=== PATIENT | male | born 1960 | race Two or more races ===

== ENCOUNTER 2021-05-16 10:15 | Emergency (ER) | payer OTHER, SELFPAY ==
--- NOTE | ~2021-05-16 | XR_ITS ---
EXAMINATION: XR SHOULDER, RIGHT CLINICAL INFORMATION: Pain COMPARISON: None TECHNIQUE: AP external rotation, Grashey, scapular Y, and axillary views of the right shoulder. FINDINGS: Bone alignment is normal. No fracture or dislocation is seen. The joint spaces are normal. Soft tissues are normal. There is a prominent right C7 transverse process. XR/XR shoulder RT min 2V IMPRESSION: Normal right shoulder.
[2021-05-16 10:33] VITALS: BP 106/69; PULSE 57; RESP 18; TEMP 36.1; O2SAT 97; BMI 23.3
--- NOTE | 2021-05-16 12:05 | ED_ITS ---
HPI - Extremity Problem General Chief complaint: Extremity Problem Stated complaint: rt shoulder pain Time Seen by Provider: 05/16/21 11:18 Source: patient Mode of arrival: ambulatory Limitations: no limitations History of Present Illness HPI Narrative: 61-year-old male here with complaints of right shoulder pain for 1 month. Patient tells me he had injury years ago but no new injury or trauma. Pain is worsened with lifting his arm up and using the arm. He denies any numbness, tingling, weakness, fevers or chills. 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 Related Data Previous Rx's Medication Instructions Recorded cyclobenzaprine 10 mg tablet 10 mg PO TID PRN #10 tab 05/16/21 naproxen 500 mg tablet 500 mg PO BID PRN #20 tab 05/16/21 Allergies Allergy/AdvReac Type Severity Reaction Status Date / Time No Known Allergies Allergy Verified 05/16/21 10:32 [No Known Allergies*] Bleach Allergy Unknown Itch/rednes Uncoded 07/18/17 00:00 s Review of Systems Review of Systems: Yes all other systems are reviewed and are negative Constitutional: Constitutional: Reports no additional constitutional complaints, Denies body ache(s), Denies chills, Denies fever(s), Denies headache(s) and Denies weakness Eyes: Eyes: Reports no additional eye complaints and Denies change in vision ENT: Reports system reviewed and no additional complaints, except as documented, Denies dizziness, Denies headache(s), Denies nasal congestion, Denies nasal discharge and Denies neck pain Cardiovascular: Cardiovascular: Reports no additional cardiovascular complain ts, Denies chest pain, Denies leg edema and Denies dyspnea Respiratory: Respiratory: Reports no additional respiratory complaints, Denies cough and Denies dyspnea Gastrointestinal: Gastrointestinal: Reports no additional gastrointestinal complaints, Denies abdominal pain, Denies diarrhea, Denies nausea and Denies vomiting Genitourinary: Genitourinary: Denies urinary incontinence Musculoskeletal: Musculoskeletal: Reports no additional musculoskeletal complaints, Denies back pain, Reports arthralgias, Denies joint swelling, Denies neck pain, Denies numbness and Denies tingling Integumentary/Breasts: Skin/Breast: Reports system reviewed and no additional complaints, except as docu and Denies rash Neurologic: Reports system reviewed and no additional complaints, except as documented, Denies Abnormal speech present, Denies dizziness, Denies headache(s), Denies numbness, Denies tingling and Denies weakness PMFSH Past Medical History Attestation statement: The following information was validated with the patient. Source: old records reviewed and nursing notes reviewed Medical History No known health problems Social History Social History Advance Directives: No Advance Directives Information Provided: No Physical Exam Vital Signs: Vital Signs: Last Vital Signs Temp 97 F 05/16/21 10:33 Pulse 57 05/16/21 10:33 Resp 18 05/16/21 10:33 BP 106/69 05/16/21 10:33 Pulse Ox 97 05/16/21 10:33 Body Mass Index 23.3 Const: General: cooperative, healthy appearing, comfortable and no acute distress Orientation/consciousness: patient oriented x3 Limitations: no limitations HENMT: Head: Yes normal to inspection Ears: hearing grossly normal bilaterally General nose exam: Normal external nose present Face and sinus: Yes normal facial exam Mouth: Normal oral and palatal mucosa present Throat: Yes posterior oropharynx normal Eyes: General: appearance normal, both eyes and all related structures Pu pils: Equal, round and reactive pupils present Neck: Neck: Yes normal visual inspection Chest: Chest palpation & inspection: normal inspection of the chest Resp: Effort & Inspection: normal respiratory effort Auscultation: clear to auscultation bilaterally Cardio: Rate: regular rate Rhythm: regular rhythm Peripheral pulses: Peripheral pulses 2+ throughout GI: Inspection: Yes normal to inspection Palpation (GI): Soft to palpation and nontender Auscultation: normal bowel sounds Back/Spine/Pelvis: Thoracic/Lumbar Spine: thoracic and lumbar spine normal to inspection Skin: General skin exam: no rashes or lesions noted Neuro: General: patient oriented x3, no focal motor deficits and normal sensation to monofilament Cranial nerves: Yes Equal, round and reactive pupils present Cognition (Neuro): normal cognition Speech: No Abnormal speech present Gait exam (Neuro): Normal gait present Motor exam (neuro): 5/5 motor strength present throughout Extrem: Other: Diffuse tenderness over the shoulder. There is pain which is worsened with abduction of the arm. No weakness. Normal sensation. General: Yes normal to inspection Course Course Course Narrative: Atraumatic right shoulder pain for 1 month. Will check x-rays 1240-x-ray show no bony abnormalities. ? rotator cuff strain versus cervical radiculopathy. Will trial anti-inflammatory, muscle relaxant at home and recommend patient follow-up with primary care by Tuesday for persistent pain. Reviewed worrisome signs and symptoms of when to return to the emergency department. Comfortable discharge home. MDM - Extremity (Nontraumatic) Medical Records Attestation: I reviewed the patient's medical records. Lab Data Attestation: I reviewed the patient's lab results. Imaging Data right shoulder xray: Attestation: I personally reviewed and interpreted this imaging study as follows: Radiologist's impression: CLINICAL INFORMATION: Pain? COMPARISON: None? TECHNIQUE: AP external rotation, Grashey, scapular Y, and axillary views of the right shoulder. FINDINGS: Bone alignment is normal. No fracture or dislocation is seen. The joint spaces are normal. Soft tissues are normal. There is a prominent right C7 transverse process.? XR/XR shoulder RT min 2V IMPRESSION: Normal right shoulder. Discharge Plan Discharge Clinical Impression: Muscle strain of right shoulder Patient Disposition: Home, Self-Care Instructions: Muscle Strain (ED) Additional Instructions: Heat or ice Gentle stretching For persistent symptoms see PCP Tuesday Prescriptions: New cyclobenzaprine 10 mg tablet 10 mg PO TID PRN (Reason: muscle spasm) Qty: 10 RF: 0 naproxen 500 mg tablet 500 mg PO BID PRN (Reason: pain) Qty: 20 RF: 0 Referrals: Physician,Unknown J [Primary Care Provider] - 2 days Interventions: ED Discharge Assessment Last Done: 05/16/21 12:26 Discharge Date/Time: 05/16/21 12:27
== END 2021-05-16 12:27 | disposition home or self-care (01) ==
PROVIDERS: Emergency Provider Emergency Medicine Emergency Medical Services
DX: M25.511 Pain in right shoulder (principal); Z79.899 Other long term (current) drug therapy
CPT/HCPCS: 73030; 99283

== ENCOUNTER 2021-06-17 06:53 | Outpatient (REF) | payer OTHER, SELFPAY ==
[2021-06-17 07:08] LABS: MANUAL DIFF FLAG NO
[2021-06-17 08:04] LABS: Basophils Absolute Auto 0.1 X10*3/uL (0.0-0.2); Basophils Percent Auto 0.8 % (0-2); Eosinophils Absolute Auto 0.2 X10*3/uL (0.0-0.4); Eosinophils Percent Auto 2.9 % (0-4); Hematocrit 42.5 % (42.0-52.0); Imm Gran Abs Auto 0.02 X10*3/uL (0.00-0.03); Imm Gran Pct Auto 0.3 % (0.0-0.4); Lymphocytes Absolute Auto 2.3 X10*3/uL (1.2-4.9); Lymphocytes Percent Auto 31.8 % (20-40); Mean Corpuscular HGB Conc 32.9 g/dl (31.0-36.0); Mean Corpuscular Hemoglobin 27.8 pg (27.0-33.0); Mean Corpuscular Volume 84.3 fL (80.0-98.0); Mean Platelet Volume 10.2 fL (9.4-12.4); Monocytes Absolute Auto 0.5 X10*3/uL (0.1-1.2); Monocytes Percent Auto 6.6 % (2-11); Neutrophils Absolute Auto 4.1 x10*3/uL (2.0-8.3); Neutrophils Percent Auto 57.6 % (45-73); Platelet Count 230 X10*3/uL (160-400); Red Blood Count 5.04 X10*6/uL (4.60-5.80); Red Cell Distribution Width 13.8 % (11.0-16.0); White Blood Count 7.2 X10*3/uL (4.8-10.8)
[2021-06-17 08:28] LABS: Anion Gap 11 (12-20); Blood Urea Nitrogen 17 mg/dL (9-16); Calcium 9.4 mg/dL (8.4-10.2); Carbon Dioxide 26 mmol/L (22-29); Chloride 104 mmol/L (96-108); Estimated Glomerular Filt Rate > 60; Glucose Random 100 mg/dL (60-115); Potassium 4.3 mmol/L (3.3-5.1); Sodium 137 mmol/L (135-145)
[2021-06-17 08:38] LABS: TSH reflex Free T4 0.63 uIU/mL (0.32-4.0)
[2021-06-17 08:55] LABS: Erythrocyte Sedimentation Rate 8 MM/HR (0-15)
[2021-06-17 09:07] LABS: Vitamin B12 429 pg/mL (200-900)
== END 2021-06-17 06:54 | disposition home or self-care (01) ==
LOC: HO.LAB 06:53
PROVIDERS: PCP Internal Medicine; Visit Provider Internal Medicine
DX: R20.2 Paresthesia of skin (principal)
CPT/HCPCS: 36415; 80048; 82607; 82746; 84443; 85025; 85652

== ENCOUNTER 2022-01-14 10:15 | Outpatient (REF) | payer OTHER, SELFPAY ==
[2022-01-14 12:14] LABS: Vitamin D 25-OH Total 15.2 ng/mL (>30)
== END 2022-01-14 10:16 | disposition home or self-care (01) ==
LOC: HO.LAB 10:15
PROVIDERS: PCP Internal Medicine; Visit Provider Nurse Practitioner Family
DX: R20.2 Paresthesia of skin (principal)
CPT/HCPCS: 36415; 82306; 83735

== ENCOUNTER → 2022-03-05 09:52 | Outpatient (BNVA) | payer OTHER, SELFPAY | PROVIDERS: PCP Nurse Practitioner Family; Visit Provider Physician Assistant | DX: M19.011 Primary osteoarthritis, right shoulder (principal); M75.51 Bursitis of right shoulder | CPT/HCPCS: 20600; 99202; J1020 ==

== ENCOUNTER → 2022-04-16 09:39 | Outpatient (BNVA) | payer OTHER, SELFPAY | PROVIDERS: PCP Nurse Practitioner Family; Visit Provider Physician Assistant | DX: M75.51 Bursitis of right shoulder (principal); M19.011 Primary osteoarthritis, right shoulder | CPT/HCPCS: 99212 ==

== ENCOUNTER 2022-04-22 11:00 | Outpatient (RCR) | payer OTHER, SELFPAY ==
--- NOTE | 2022-03-22 13:54 | MHC.PT.EP ---
[facility] [place] [facility] [place] [facility] [place] [facility] [address] Favio Reyna [address] [phone] F: [phone] F: [phone] F: [phone] F: [phone] Physical Therapy Plan of Care Date of Evaluation: Date of Surgery: N/A Diagnosis: Bursitis of right shoulder primary osteoarthritis, right shoulder Assessment: Pt is a 62yo M who presents to PT for R shoulder pain. He reports he fell during snow removal ~2 years ago and has had pain since. He presents to PT with current impairments in pain, decreased shoulder ROM, decreased shoulder strength, soft tissue restrictions, and impaired posture. He is limited functionally by lifting, reaching, overhead ADLs, driving, and sleeping. He is a good candidate for skilled PT in order to address current impairments to facilitate return to PLOF. He will be seen 2x/week for 4 weeks and will be reassessed at that time. Frequency and Duration: The patient will be seen 2x/week for 4 weeks Short Term Goals: Pt will be I with HEP to promote self management of symptoms Pt will demonstrate improvements in posture throughout the day Tread Builder Goals: Pt will demonstrate full ROM all planes of R shoulder Pt will perform overhead ADLs with minimal to no compensation of R UE Pt will demonstrate ability to lift 5# object into cabinet to assist with daily functional tasks Treatment Plan: Modalities to reduce pain, spasms and effusion. Manual therapy to restore motion and function. Therapeutic exercise to improve strength and flexibility. Neuromuscular re-education for posture and balance. Therapeutic activities to return to functional activities of daily living. Electronically signed by: Starla Lee, PT, DPT Please sign and return to therapist. Thank you for your referral.
--- NOTE | 2022-05-03 10:38 | MHC.PT.DC ---
[facility] [place] [facility] [place] [facility] [place] [facility] [address] Favio Reyna [address] [phone] F: [phone] F: [phone] F: [phone] F: [phone] Physical Therapy Discharge Report Diagnosis: Bursitis of right shoulder primary osteoarthritis, right shoulder Date of Surgery: N/A Date of Evaluation: 03/22/22 Date of Discharge: 05/03/22 Treatments to Date: 5 Cancellations to Date: 0 No Shows to Date: 5 Discharge Status: Visit Non-compliance Discharge Summary: Pt was seen for PT from 03/22/22-04/22/22. He was making progress toward his goals and was improving AROM all planes of right shoulder. He attended 5 PT sessions and had 5 no-show appointments. Pt is being D/C from skilled PT per [facility] attendance policy and visit non-compliance. Electronically signed by: Starla Lee, PT, DPT Please sign and return to therapist. Thank you for your referral.
== END 2022-05-03 10:38 | disposition home or self-care (01) ==
LOC: HO.PT 11:00
PROVIDERS: PCP Nurse Practitioner Family; Visit Provider Physician Assistant
DX: M75.51 Bursitis of right shoulder (principal); M19.011 Primary osteoarthritis, right shoulder
CPT/HCPCS: 97110; 97162

== ENCOUNTER 2022-04-29 08:56 | Outpatient (REF) | payer OTHER, SELFPAY ==
--- NOTE | 2022-04-29 08:55 | EMG_ITS ---
Left median and ulnar motor and sensory studies were performed. Left radial and sensory study was performed and paraspinal muscles were tested with a needle. IMPRESSION: Mild to moderate left median neuropathy across carpal tunnel. MD MIYA Barker/ORTIZ / [id number]
== END 2022-04-29 08:57 | disposition home or self-care (01) ==
LOC: HO.NEURO 08:56
PROVIDERS: PCP Internal Medicine; Visit Provider Nurse Practitioner Family
DX: R20.2 Paresthesia of skin (principal)
CPT/HCPCS: 95886; 95909